=== PATIENT | female | born 1945 | race Caucasian/White ===

== ENCOUNTER 2022-03-11 19:23 | Observation (INO) | payer OTHER ==
[~2022-03-11] VITALS: Ht 142.2 cm; Wt 68.9 kg
[2022-03-11 19:35] VITALS: BP 126/70
--- NOTE | 2022-03-11 19:40 | NUR ---
PT AIDEN LOTT, TAKEN TO LOBBY VIA WC BY EMS
--- NOTE | 2022-03-11 20:01 | NUR ---
Dr. Valadez examining patient.
[2022-03-11] MEDS ORDERED: VANCOMYCIN 1,000 MG in DEXTROSE 5% 250 ML IV ONE (20:05)
--- NOTE | 2022-03-11 20:06 | NUR ---
Patient place to bed 12.
--- NOTE | 2022-03-11 20:10 | NUR ---
ASSUMED CARE OF PT AT THIS TIME. PT IN POSITION OF COMFORT. MEDICATED PT PER ORDERS AT THIS TIME. PT UPDATED ON POC WITH FULL RETURNED VERBAL UNDERSTANDING. AWAITING RESULTS. WILL CONTINUE TO MONITOR PAIN/COMFORT.
--- NOTE | 2022-03-11 20:14 | NUR ---
XRAY AT BEDSIDE
--- NOTE | 2022-03-11 20:15 | NUR ---
ASSUMED CARE OF PT AT THIS TIME. PT IN POSITION OF COMFORT. DENIES ANY NEEDS OR PAIN AT THIS TIME. PT UPDATED ON POC WITH FULL RETURNED VERBAL UNDERSTANDING. IV ESTABLISHED AT THIS TIME. WILL FOLLOW THROUGH WITH ALL CURRENT ORDERS. WILL CONTINUE TO MONITOR.
[2022-03-11] MEDS ORDERED: cefTRIAXone 1,000 MG VIAL ONE (20:30)
[2022-03-11 20:37] LABS: BASOPHILS % (AUTO) 0.5 % (0.0-2.0); EOSINOPHILS # (AUTO) 0.5 K/uL (0-0.4); EOSINOPHILS % (AUTO) 6.6 % (0.0-4.0); HEMATOCRIT 31.5 % (36-48); HEMOGLOBIN 10.5 g/dL (12.0-16.0); LYMPHOCYTES # (AUTO) 1.4 K/uL (2.5-16.5); LYMPHOCYTES % (AUTO) 18.5 % (20.5-51.1); MEAN CORPUSCULAR HEMOGLOBIN 29 pg (27-31); MEAN CORPUSCULAR HGB CONC 33 g/dL (33-37); MEAN CORPUSCULAR VOLUME 85.7 fL (80-94); MONOCYTES # (AUTO) 0.7 K/uL (0.8-1.0); MONOCYTES % (AUTO) 8.9 % (1.7-9.3); NEUTROPHILS % (AUTO) 65.5 % (42.2-75.2); PLATELET COUNT (AUTO) 302 K/uL (140-450); RED BLOOD CELL COUNT(AUTO) 3.67 MIL/uL (4.20-5.40); RED CELL DISTRIBUTION WIDTH 13.8 % (11.6-13.7); WHITE BLOOD COUNT (AUTO) 7.7 K/uL (4.8-10.8)
[2022-03-11 20:54] LABS: ALBUMIN 3.1 g/dL (3.4-5.0); ANION GAP 13.5 (8-16); ASPARTATE AMINOTRANSFERASE 14 U/L (15-37); CARBON DIOXIDE 25.9 mmol/L (21-32); CHLORIDE 104 mmol/L (98-107); CREATININE 1.4 mg/dL (0.6-1.3); GLUCOSE 121 mg/dL (74-106); POTASSIUM 4.4 mmol/L (3.5-5.1); SODIUM SERUM 139 mmol/L (136-145); TOTAL BILIRUBIN 0.2 mg/dL (0.0-1.0); UREA NITROGEN, BLOOD 34 mg/dL (7-18)
--- NOTE | 2022-03-11 21:20 | NUR ---
CALL FROM SON BUCHANAN WHO LEFT CONTACT INFO FOR UPDATES:
[2022-03-11] MEDS ORDERED: VANCOMYCIN 1,000 MG VIAL ONE (21:50)
--- NOTE | 2022-03-11 23:21 | NUR ---
Pt in position of comfort. Denies any pain at this time. Pt cleaned up as she is incontinent. Pt updated on bed status and will be holding in ED. Pt verbalizes full understanding. Will continue to monitor.
[2022-03-11] MEDS ORDERED: BACL10TA4 PO (23:35)
[2022-03-11] MEDS ORDERED: ENAL-197 PO (23:35)
[2022-03-11] MEDS ORDERED: folic acid PO (23:35)
[2022-03-11] MEDS ORDERED: ROSU20TA1 PO (23:35)
[2022-03-11] MEDS ORDERED: AMLO10TA87 PO (23:35)
[2022-03-11] MEDS ORDERED: CEPH-588 PO (23:35)
[2022-03-11] MEDS ORDERED: ALEN70TA85 PO (23:35)
--- NOTE | 2022-03-11 23:40 | NUR ---
SPOKE WITH [facility] TO REVIEW ANY ABNORMAL LABS AND NEED FOR ADMISSION. INFORMATION GIVEN. [facility] WILL CALL BACK WHEN APPROVED.
[2022-03-11] MEDS ORDERED: OMEP20EC11 PO (23:51)
[2022-03-11] MEDS ORDERED: ACET-2619 PO (23:51)
[2022-03-11] MEDS ORDERED: CALC500C17 PO (23:51)
[2022-03-11] MEDS ORDERED: CRAN450T5 PO (23:51)
[2022-03-11] MEDS ORDERED: MULT-2246 PO (23:51)
[2022-03-11] MEDS ORDERED: CALC-575 PO (23:51)
[2022-03-11] MEDS ORDERED: [UNRECOGNIZED DRUG - CODE] PO (23:51)
--- NOTE | 2022-03-11 23:52 | NUR ---
Med- Rec reviewed.
[2022-03-12] MEDS ORDERED: MORPHINE SULFATE 2 MG/ML SYR IVP ONE
[2022-03-12] MEDS ORDERED: ONDANSETRON 4 MG/2 ML VIAL IVP ONE
[2022-03-12] MEDS ORDERED: VANCOMYCIN PER PHARMACY MC PRN (01:05)
[2022-03-12] MEDS ORDERED: ONDANSETRON 4 MG/2 ML VIAL IVP PRN (01:05)
[2022-03-12] MEDS ORDERED: ACETAMINOPHEN 325 MG TAB PO PRN (01:05)
[2022-03-12] MEDS: NACL 0.9% 1,000 ML IV SCH ×2 (01:30→16:10)
--- NOTE | 2022-03-12 07:27 | NUR ---
Transfer of care at this time.
[2022-03-12] MEDS: PANTOPRAZOLE 40 MG TABEC PO SCH (08:48)
[2022-03-12] MEDS: ENALAPRIL 10 MG TAB PO SCH (08:49)
[2022-03-12] MEDS: CALCIUM CARBONATE 500 MG TAB.CHEW PO SCH ×2 (08:49→21:00)
[2022-03-12] MEDS: MORPHINE SULFATE 2 MG/ML SYR IVP PRN ×2 (08:50→16:32)
--- NOTE | 2022-03-12 08:50 | NUR ---
pt sitting up and eating breakfast at this time
[2022-03-12] MEDS: BACLOFEN 10 MG TAB PO SCH ×2 (08:54→21:00)
--- NOTE | 2022-03-12 10:02 | NUR ---
Patient appears to be resting comfortably in bed. Vital Signs within normal limits. Respirations even and unlabored.
[2022-03-12] MEDS ORDERED: VANCOMYCIN 500 MG in DEXTROSE 5% 100 ML IV SCH (11:00)
[2022-03-12] MEDS ORDERED: VANCOMYCIN 500 MG VIAL ONE (11:10)
--- NOTE | 2022-03-12 12:04 | NUR ---
urine canister changed at this time 800ml clear, yellow urine.
--- NOTE | 2022-03-12 16:32 | NUR ---
pt iv dressing changed, site appeared bloody and moist. site dried and new dermdressing placed.
--- NOTE | 2022-03-12 18:44 | NUR ---
pt sitting up and eating dinner at this time
--- NOTE | 2022-03-12 19:40 | NUR ---
Assumed care for patient at this time. Patient AAOX4 and sitting in bed. patient c/o of being cold. repositiong and covered with warm blankets. patient vss and placed on bedside monitor. patient appears to have BLE redness and swelling. denies pain. All needs met at this time.
--- NOTE | 2022-03-12 19:43 | NUR ---
Cindy almaraz in [facility] - 03/12/22 at 2002 by RADHA surgeon at bedside assessing patient
--- NOTE | 2022-03-12 19:50 | NUR ---
REPORT GIVEN TO CANDI MEI. TRANSFER OF CARE.
--- NOTE | 2022-03-12 20:10 | NUR ---
Patient will be admitted to care of shaylee john MD. Admited to Med/surg. Will go to room 121b. Belongings list completed. Report to codey sams.
--- NOTE | 2022-03-12 20:40 | NUR ---
PT AWAKE, NO DISTRESS NOTED, BEDSIDE REPORT GIVEN TO CANDI LOYD FOR CONTINUITY OF CARE.
--- NOTE | 2022-03-12 21:00 | NUR ---
RECD BEDSIDE REPORT FROM SIGIFREDO CHRISTOPHER FOR CONTINUITY OF CARE.
[2022-03-12 22:46] VITALS: BP 137/79
[2022-03-13] MEDS: NACL 0.9% 1,000 ML IV SCH (02:49)
[2022-03-13 04:00] VITALS: BP 130/64
[2022-03-13 05:55] LABS: BASOPHILS # (AUTO) 0.1 K/uL (0.00-0.22); BASOPHILS % (AUTO) 0.7 % (0.0-2.0); EOSINOPHILS # (AUTO) 0.6 K/uL (0-0.4); EOSINOPHILS % (AUTO) 7.3 % (0.0-4.0); HEMATOCRIT 28.9 % (36-48); HEMOGLOBIN 9.8 g/dL (12.0-16.0); LYMPHOCYTES # (AUTO) 1.6 K/uL (2.5-16.5); LYMPHOCYTES % (AUTO) 20.2 % (20.5-51.1); MEAN CORPUSCULAR HEMOGLOBIN 29 pg (27-31); MEAN CORPUSCULAR HGB CONC 34 g/dL (33-37); MEAN CORPUSCULAR VOLUME 85.1 fL (80-94); MONOCYTES # (AUTO) 0.6 K/uL (0.8-1.0); MONOCYTES % (AUTO) 8.1 % (1.7-9.3); NEUTROPHILS % (AUTO) 63.7 % (42.2-75.2); PLATELET COUNT (AUTO) 265 K/uL (140-450); WHITE BLOOD COUNT (AUTO) 7.9 K/uL (4.8-10.8)
[2022-03-13 06:46] LABS: ANION GAP 11.9 (8-16); CARBON DIOXIDE 27.4 mmol/L (21-32); CHLORIDE 108 mmol/L (98-107); CREATININE 1.2 mg/dL (0.6-1.3); GLUCOSE 90 mg/dL (74-106); POTASSIUM 4.3 mmol/L (3.5-5.1); SODIUM SERUM 143 mmol/L (136-145); UREA NITROGEN, BLOOD 22 mg/dL (7-18)
--- NOTE | 2022-03-13 07:10 | NUR ---
RECEIVED REPORT FORM TUBE LASER OPERATOR NURSE BHAVIK RN, FOR CONTINUITY OF CARE. NO SIGNS OF DISTRESS OR LABORED BREATHING AND PT IS RESTING IN BED. A&OX4, SKIN INTACT EXCEPT REDNESS OF L LEG. , IV 22G L WRIST SL, INTACT AND PATENT. VITALS SIGNS STABLE, AND ON BEDSIDE MONITOR. CALL LIGHT WITHIN REACH, BED IN LOW POSITION AND TO SIDE RAILS UP. ALL SAFETY MEASURES IN PLACE AND WILL CONTINUE TO MONITOR.
[2022-03-13 08:00] VITALS: BP 115/75
[2022-03-13] MEDS ORDERED: VANCOMYCIN 750 MG in DEXTROSE 5% 250 ML IV SCH (09:00)
[2022-03-13] MEDS ORDERED: SULF-58 PO (09:19)
[2022-03-13] MEDS: ENALAPRIL 10 MG TAB PO SCH (09:33)
[2022-03-13] MEDS: PANTOPRAZOLE 40 MG TABEC PO SCH (09:33)
[2022-03-13] MEDS: CALCIUM CARBONATE 500 MG TAB.CHEW PO SCH (09:33)
[2022-03-13] MEDS: BACLOFEN 10 MG TAB PO SCH (09:34)
--- NOTE | 2022-03-13 12:00 | NUR ---
PT RESTING IN BED. WILL CONTINUE TO MONITOR.
[2022-03-13 13:29] VITALS: BP 115/75
[2022-03-13] MEDS ORDERED: NACL 0.45% 1,000 ML IV SCH (13:30)
[2022-03-13 16:00] VITALS: BP 112/77
--- NOTE | 2022-03-13 16:00 | NUR ---
PT RESTING IN BED. WILL CONTINUE TO MONITOR.
--- NOTE | 2022-03-13 18:18 | NUR ---
PT PICKED UP BY TRANSPORTATION TO TAKE HERE BACK TO [facility]. PT STABLE ON DC. IV AND WRISTBAND REMOVED.
--- NOTE | 2022-03-16 14:55 | NUR ---
LATE ENTRY- IV NORMAL SALINE DISCONTINUED AT 2009.
== END 2022-03-13 18:15 | disposition home or self-care (01) ==
LOC: MED 19:23 → MMU 03-12 01:01 → MTU 03-12 18:41
PROVIDERS: ADMIT Student in an Organized Health Care Education/Training Program; ATTEND Student in an Organized Health Care Education/Training Program
DX: L03.116 Cellulitis of left lower limb (principal); Z20.822 Contact with and (suspected) exposure to COVID-19; I10 Essential (primary) hypertension; E78.5 Hyperlipidemia, unspecified; Z79.899 Other long term (current) drug therapy
CPT/HCPCS: 36415; 73590; 76770; 80048; 80053; 80202; 85025; 87081; 87426; 96361; 96365; 96366; 96368; 96375; 96376; 99284; 99285; G0378; J0696; J2270; J2405; J3370; J7060; Q0092

== ENCOUNTER 2023-03-25 14:39 | Inpatient (IN) | payer OTHER ==
[~2023-03-25] VITALS: Ht 142.2 cm; Wt 77.1 kg
[~2023-03-25 14:39] MED LIST: ACET-2619 PO; ALEN70TA85 PO; AMLO10TA87 PO; BACL10TA4 PO; CALC-575 PO; CALC500C17 PO; CRAN450T5 PO; ENAL-197 PO; FURO-572 PO; MULT-2246 PO; OMEP20EC11 PO; ROSU20TA1 PO; SULF-58 PO; [UNRECOGNIZED DRUG - CODE] PO; folic acid PO
[2023-03-25 14:43] VITALS: BP 110/56; PULSE 95; RESP 18; TEMP 98.7; O2SAT 95
[2023-03-25 16:32] LABS: BASOPHILS % (AUTO) 0.2 % (0.0-2.0); EOSINOPHILS # (AUTO) 0.2 K/uL (0-0.4); EOSINOPHILS % (AUTO) 1.1 % (0.0-4.0); HEMATOCRIT 34.1 % (36-48); LYMPHOCYTES # (AUTO) 2.3 K/uL (2.5-16.5); LYMPHOCYTES % (AUTO) 13.1 % (20.5-51.1); MEAN CORPUSCULAR HEMOGLOBIN 27 pg (27-31); MEAN CORPUSCULAR HGB CONC 32 g/dL (33-37); MEAN CORPUSCULAR VOLUME 84.6 fL (80-94); MONOCYTES # (AUTO) 0.9 K/uL (0.8-1.0); MONOCYTES % (AUTO) 4.9 % (1.7-9.3); NEUTROPHILS # (AUTO) 14.1 K/uL (1.8-7.7); NEUTROPHILS % (AUTO) 80.7 % (42.2-75.2); PLATELET COUNT (AUTO) 261 K/uL (140-450); RED BLOOD CELL COUNT(AUTO) 4.03 MIL/uL (4.20-5.40); RED CELL DISTRIBUTION WIDTH 14.6 % (11.6-13.7); WHITE BLOOD COUNT (AUTO) 17.5 K/uL (4.8-10.8)
[2023-03-25 16:47] LABS: ALANINE AMINOTRANSFERASE 16 U/L (12-78); ALBUMIN 3.3 g/dL (3.4-5.0); ALKALINE PHOSPHATASE 66 U/L (50-136); ANION GAP 15.7 (8-16); ASPARTATE AMINOTRANSFERASE 17 U/L (15-37); CARBON DIOXIDE 23.2 mmol/L (21-32); CHLORIDE 104 mmol/L (98-107); CREATININE 1.3 mg/dL (0.6-1.3); GLUCOSE 121 mg/dL (74-106); LIPASE 22 U/L (16-77); POTASSIUM 3.9 mmol/L (3.5-5.1); SODIUM SERUM 139 mmol/L (136-145); TOTAL BILIRUBIN 0.6 mg/dL (0.0-1.0); TOTAL PROTEIN, SERUM 7.2 g/dL (6.4-8.2); UREA NITROGEN, BLOOD 21 mg/dL (7-18)
[2023-03-25] MEDS ORDERED: XALOS OP (17:21)
[2023-03-25] MEDS ORDERED: CHOL100012 PO (17:21)
[2023-03-25] MEDS ORDERED: FOLI1TAB90 PO (17:21)
[2023-03-25] MEDS ORDERED: PANT40EC PO (17:21)
[2023-03-25] MEDS ORDERED: ASCO-786 PO (17:21)
[2023-03-25] MEDS ORDERED: KEN.1C TP (17:21)
[2023-03-25] MEDS ORDERED: metroNIDAZOLE 500 MG/NS PREMIX 100 ML IV ONE (17:35)
[2023-03-25] MEDS ORDERED: LEVOFLOXACIN 500 MG/D5W PREMIX 100 ML IV ONE (17:35)
[2023-03-25] MEDS ORDERED: HYDROcodone/APAP 5/325 MG 1 TAB TAB PO PRN (17:45)
[2023-03-25] MEDS ORDERED: ACETAMINOPHEN 325 MG TAB PO PRN (17:45)
[2023-03-25 17:50] LABS: BILIRUBIN,URINE NEGATIVE (NEGATIVE); BLOOD, URINE NEGATIVE (NEGATIVE); COLOR,URINE YELLOW (YELLOW); LEUKOCYTE ESTERASE ,URINE 3+ (NEGATIVE); NITRITE, URINE POSITIVE (NEGATIVE); PH,URINE >=9.0 (5.0-9.0); PROTEIN,URINE 1+ (NEGATIVE); UGLUCOSE NEGATIVE (NEGATIVE); UROBILINOGEN,URINE 0.2 EU/dL (0.2 - 1)
[2023-03-25 18:05] LABS: APPEARANCE,URINE HAZY (CLEAR)
[2023-03-25 18:25] LABS: BACTERIA,URINE 4+ /HPF (None Seen); RBC,URINE NONE SEEN /HPF (0-5); SQUAMOUS EPITHELIAL CELL,UR 4-10 (MOD) /LPF (0-3 (FEW)); TRIPLE PHOSPHATE CRYSTAL,UR 0-10 /HPF (None Seen); WBC,URINE 0-5 /HPF (0-5)
[2023-03-25] MEDS: MORPHINE SULFATE 4 MG/ML SYR IVP PRN (18:34)
[2023-03-25] MEDS: NACL 0.9% 1,000 ML IV SCH (19:25)
[2023-03-25 19:59] VITALS: O2SAT 95
[2023-03-26] VITALS (8 sets, daily range): BP systolic 125–134; BP diastolic 76–89; PULSE 65–83; RESP 20; TEMP 97.1–98.1; O2SAT 95–99
[2023-03-26 05:38] LABS: ANION GAP 13.6 (8-16); CARBON DIOXIDE 24.2 mmol/L (21-32); CHLORIDE 105 mmol/L (98-107); POTASSIUM 3.8 mmol/L (3.5-5.1); SODIUM SERUM 139 mmol/L (136-145)
[2023-03-26 05:39] LABS: ALANINE AMINOTRANSFERASE 19 U/L (12-78); ASPARTATE AMINOTRANSFERASE 19 U/L (15-37); CALCIUM 8.3 mg/dL (8.5-10.1); CREATININE 1.2 mg/dL (0.6-1.3); GLUCOSE 89 mg/dL (74-106); TOTAL BILIRUBIN 0.6 mg/dL (0.0-1.0); TOTAL PROTEIN, SERUM 6.5 g/dL (6.4-8.2); UREA NITROGEN, BLOOD 22 mg/dL (7-18)
[2023-03-26 05:40] LABS: ALBUMIN 2.8 g/dL (3.4-5.0); MAGNESIUM 1.6 mg/dL (1.8-2.4)
[2023-03-26] MEDS: NACL 0.9% 1,000 ML IV SCH ×2 (06:15→16:56)
[2023-03-26 06:23] LABS: ALKALINE PHOSPHATASE 66 U/L (50-136)
[2023-03-26] MEDS: metroNIDAZOLE 500 MG/NS PREMIX 100 ML IV SCH ×2 (11:17→16:56)
[2023-03-26] MEDS ORDERED: MAG SULF 2000 MG/WATER PREMIX 50 ML IV PRN (21:10)
[2023-03-27] MEDS: metroNIDAZOLE 500 MG/NS PREMIX 100 ML IV SCH ×3 (00:50→16:16)
[2023-03-27 04:00] VITALS: BP 142/61; PULSE 81; RESP 18; TEMP 96.9; O2SAT 96
[2023-03-27] MEDS: NACL 0.9% 1,000 ML IV SCH ×2 (04:58→17:37)
[2023-03-27] MEDS: MORPHINE SULFATE 4 MG/ML SYR IVP PRN (05:40)
[2023-03-27 07:11] LABS: ALANINE AMINOTRANSFERASE 16 U/L (12-78); ALBUMIN 2.9 g/dL (3.4-5.0); ALKALINE PHOSPHATASE 75 U/L (50-136); ASPARTATE AMINOTRANSFERASE 15 U/L (15-37); CALCIUM 8.4 mg/dL (8.5-10.1); CARBON DIOXIDE 21.8 mmol/L (21-32); CHLORIDE 104 mmol/L (98-107); GLUCOSE 94 mg/dL (74-106); MAGNESIUM 2.2 mg/dL (1.8-2.4); POTASSIUM 3.8 mmol/L (3.5-5.1); SODIUM SERUM 138 mmol/L (136-145); TOTAL BILIRUBIN 0.5 mg/dL (0.0-1.0); TOTAL PROTEIN, SERUM 6.7 g/dL (6.4-8.2); UREA NITROGEN, BLOOD 14 mg/dL (7-18)
[2023-03-27 07:38] VITALS: O2SAT 95
[2023-03-27 08:00] VITALS: BP 142/71; PULSE 81; RESP 18; TEMP 97.3; O2SAT 94
[2023-03-27 08:03] VITALS: PULSE 68; RESP 18; O2SAT 97
[2023-03-27 08:49] LABS: BASOPHILS # (AUTO) 0.1 K/uL (0.00-0.22); BASOPHILS % (AUTO) 0.4 % (0.0-2.0); EOSINOPHILS # (AUTO) 0.4 K/uL (0-0.4); EOSINOPHILS % (AUTO) 2.7 % (0.0-4.0); HEMATOCRIT 31.9 % (36-48); HEMOGLOBIN 10.3 g/dL (12.0-16.0); LYMPHOCYTES # (AUTO) 1.5 K/uL (2.5-16.5); LYMPHOCYTES % (AUTO) 9.7 % (20.5-51.1); MEAN CORPUSCULAR HEMOGLOBIN 28 pg (27-31); MEAN CORPUSCULAR HGB CONC 32 g/dL (33-37); MEAN CORPUSCULAR VOLUME 85.6 fL (80-94); MONOCYTES # (AUTO) 0.8 K/uL (0.8-1.0); MONOCYTES % (AUTO) 5.3 % (1.7-9.3); NEUTROPHILS % (AUTO) 81.9 % (42.2-75.2); PLATELET COUNT (AUTO) 259 K/uL (140-450); RED BLOOD CELL COUNT(AUTO) 3.73 MIL/uL (4.20-5.40); RED CELL DISTRIBUTION WIDTH 14.8 % (11.6-13.7); WHITE BLOOD COUNT (AUTO) 15.9 K/uL (4.8-10.8)
[2023-03-27] MEDS ORDERED: METR-435 PO (15:34)
[2023-03-27] MEDS ORDERED: CEFP200T20 PO (15:34)
[2023-03-27] MEDS ORDERED: LEVOFLOXACIN 750 MG/D5W PREMIX 150 ML IV ONE (17:30)
[2023-03-27 17:48] VITALS: BP 125/65; PULSE 68; RESP 20; TEMP 97.1
[2023-03-27] MEDS ORDERED: LEVOFLOXACIN 750 MG/D5W PREMIX 150 ML IV SCH (19:00)
[2023-03-27 20:08] VITALS: O2SAT 96
== END 2023-03-27 20:45 | DRG 872 ==
LOC: MED 14:39 → MMU 17:42 → MTU 18:31
PROVIDERS: ADMIT Internal Medicine; ATTEND Internal Medicine
DX: A41.9 Sepsis, unspecified organism (principal); N39.0 Urinary tract infection, site not specified; J98.11 Atelectasis; K52.9 Noninfective gastroenteritis and colitis, unspecified; N18.9 Chronic kidney disease, unspecified; K21.9 Gastro-esophageal reflux disease without esophagitis; I12.9 Hypertensive chronic kidney disease with stage 1 through stage 4 chronic kidney disease, or unspecified chronic kidney disease; N18.30 Chronic kidney disease, stage 3 unspecified; D64.9 Anemia, unspecified
CPT/HCPCS: 36415; 80053; 81001; 83690; 83735; 85025; 87040; 87081; 87086; 96365; 96375; 99285; J1644; J1956; J2270; J3475; J3490